=== PATIENT | male | born 2000 | race Caucasian/White ===

== ENCOUNTER 2023-11-20 18:59 | Outpatient (CLI) | payer OTHER | END 2023-11-20 19:00 | disposition left against medical advice (07) | LOC: EMS 18:59 | DX: S01.81XA Laceration without foreign body of other part of head, initial encounter (principal); W18.30XA Fall on same level, unspecified, initial encounter; Y92.414 Local residential or business street as the place of occurrence of the external cause ==

== ENCOUNTER 2023-11-20 19:43 | Emergency (ER) | payer OTHER ==
--- NOTE | 2023-11-20 20:20 | ED Physician Documentation ---
PD HPI SYNCOPE - Stated complaint Stated Complaint: SYNCOPE/FACE LAC - Chief complaint Chief Complaint: Neuro - History obtained from History obtained from: Patient - History of Present Illness Witnessed: Witnessed - Additional information Additional information: HPI from patient as well as from patient's mother (in ED at patient's bedside). Patient and his mother were leaving a restaurant shortly before coming to the emergency department. On the way to the car from the restaurant, patient says he felt "a little dizzy", then woke up on the ground. Patient's mother says the patient was unconscious for "only a few seconds", rapidly returning to his baseline mental status. He felt face-forward, sustaining abrasion to his face and laceration to his chin. The patient is AAOx3 on HPI, says he has mild pain at the site of the chin laceration but otherwise denies headache, chest pain, any other pains (trunk, back, arms, legs). He thinks his last tetanus shot was approximately 5-6 years ago. Review of Systems Eyes: denies: Loss of vision, Decreased vision Skin: reports: Laceration (s) Musculoskeletal: reports: Reviewed and negative Neurologic: reports: Syncope, Head injury. denies: Focal weakness, Numbness, Headache, LOC PD PAST MEDICAL HISTORY - Past Medical History Past Medical History: No - Present Medications Home Medications: Ambulatory Orders Medication Instructions Recorded Confirmed No Known Home Medications 11/20/23 11/20/23 - Allergies Allergies/Adverse Reactions: Allergies Allergy/AdvReac Type Severity Reaction Status Date / Time No Known Drug Allergies Allergy Verified 11/20/23 20:00 PD ED PE NORMAL - Vitals Vital signs reviewed: Yes - General General: Alert and oriented X 3, No acute distress, Well developed/nourished - HEENT HEENT: PERRL, EOMI, Dentition benign - Neck Neck: No bony TTP - Cardiac Cardiac: RRR, No murmur, No gallop, No rub PD ED PE EXPANDED - HEENT HEENT: PERRL, EOMI HEENT Visual: 1 - abrasion (superficial abrasion; no bony tenderness, no deformity) 2 - laceration (2 cm length) Results - Vitals Vitals: Vital Signs - 24 hr 11/20/23 11/20/23 11/20/23 19:52 20:00 21:00 Temperature 36.0 C L Heart Rate 87 87 105 H Respiratory 17 19 Rate Blood Pressure 132/67 H 126/86 H O2 Saturation 100 100 100 Oxygen O2 Source Room air Procedures - Laceration (location) Face Length in cm: 2 Wound type: Linear, Into subcut fat, Contaminated Neurovascular status: Sensory intact, Motor intact, Vascular intact Anesthesia: Lidocaine 1%, With bicarb Wound preparation: Hibiclens, Irrigated copiously NS, Wound explored, To the base Skin layer closure: Nylon, Interrupted (solitary single interrupted suture to close small gap (successfully) between two of the running throws), Running (5 throws running), Sutures - enter # (6 total (five running, one single interrupted)) Other: Patient tolerated well, No complications, Neurovascular intact, Tetanus UTD PD Medical Decision Making - ED course Complexity details: considered differential, d/w patient ED course: . Patient initially wanted to discuss options that would not require follow-up regarding repair of the chin laceration. I explained to him that this was his decision, but that his chin laceration is long enough and most certainly deep enough to require laceration for optimal repair. I told him it would be possible that the wound would actually not even repair if it was not properly closed (i.e. this could become a chronic wound due to its depth). At their this discussion, he allows me to repair the wound. During discussion, I also had him take a picture with his iPhone while I distracted the wound margins to show him the length and depth, and this very rapidly convinced him to allow me to repair the wound. Regarding his syncope, this is a young healthy patient with brief LOC after syncopal episode although there is a paucity of prodrome and his description. I recommended an EKG to screen for patterns/rhythms that could cause syncope and might need further testing/treatment (such as prolonged QT, brugada syndrome). He declines EKG, says he will follow-up with his primary care provider next available appointment to discuss the syncopal episode. Departure - Departure Disposition: 01 Home, Self Care Clinical Impression: Chin laceration, Syncope Condition: Good Instructions: Syncope, ED Laceration Facial Sutr Tape Comments: Your chin laceration was repaired with 6 stitches. I placed 5 running sutures followed by a single simple-interrupted suture to close a small gap. I am providing this information for you to bring to whomever removes the stitches (this will give them a guideline as to how many sutures they are needing to remove and the type of sutures placed). As we discussed, you should arrange for a follow-up appointment within the next 7 to 10 days for removal of the stitches. You should also mention to your primary care provider the episode that led to this ED visit (syncope; instructions regarding this diagnosis are provided within this discharge packet).
[2023-11-20] MEDS ORDERED: BUFFERED LIDOCAINE 10 ML SYRINGE SUBQ STA (20:36)
[2023-11-20] MEDS ORDERED: BACITRACIN ZINC OINT 1 PACKET TOP STA (21:21)
[2023-11-20 21:45] VITALS: BP 118/66; O2SAT 99
== END 2023-11-20 21:40 | disposition home or self-care (01) ==
LOC: ED 19:43
DX: S01.81XA Laceration without foreign body of other part of head, initial encounter (principal); R55 Syncope and collapse; W18.30XA Fall on same level, unspecified, initial encounter; Y92.481 Parking lot as the place of occurrence of the external cause
CPT/HCPCS: 12011; 99282; 99283